=== PATIENT | female | born 1995 | race Caucasian/White ===

== ENCOUNTER 2021-11-11 07:15 | Inpatient (IN) | payer BC ==
[~2021-11-11 07:15] MED LIST: Bupivacaine 0.25% 10 ML SDV ONE
[2021-11-11] MEDS ORDERED: Sodium Chloride 0.9% 10 ML Syringe FLUSH PRN (07:17)
[2021-11-11] MEDS ORDERED: Ondansetron 4 MG/2 ML SDV IVPUSH PRN (07:17)
[2021-11-11] MEDS ORDERED: Nalbuphine HCl 10 MG/ 1ML Amp IVPUSH PRN (07:17)
[2021-11-11] MEDS ORDERED: Oxytocin/Lactated Ringers 10 UNIT/1,000 ML BAG IV SCH ×2 (07:30)
[2021-11-11] MEDS ORDERED: diphenhydrAMINE 50 MG/ML SDV IVPUSH PRN (09:08)
[2021-11-11] MEDS ORDERED: Bupivacaine/fentaNYL/NS 100 ML Bag EPIDUR PRN (09:08)
[2021-11-11] MEDS ORDERED: ePHEDrine 50 MG/ML SDV IVPUSH PRN (09:08)
[2021-11-11] MEDS ORDERED: fentaNYL 100 MCG/2 ML SDV EPIDUR PRN (09:08)
[2021-11-11] MEDS: Lactated Ringers 1,000 ML IV SCH ×5 (09:22→21:28)
[2021-11-11] MEDS: Sodium Chloride 0.9% 10 ML Syringe FLUSH SCH (09:24)
[2021-11-11] MEDS ORDERED: ceFAZolin 1 GM Vial IV STA (21:05)
[2021-11-11] MEDS ORDERED: ceFAZolin 1 GM in Sodium Chloride 0.9% 50 ML IV STA (21:12)
[2021-11-11] MEDS ORDERED: Witch Hazel Medicated Pads 40/Jar TOP PRN (22:48)
[2021-11-11] MEDS ORDERED: Docusate Sodium 100 MG Cap PO PRN (22:48)
[2021-11-11] MEDS ORDERED: Acetaminophen 325 MG Tab PO PRN (22:48)
[2021-11-11] MEDS ORDERED: Benzocaine/Menthol 20%-0.5% Spray 78 GM Cannister TOP PRN (22:48)
[2021-11-11] MEDS: Ibuprofen 600 MG Tab PO PRN (23:05)
[2021-11-12] MEDS: Sodium Chloride 0.9% 10 ML Syringe FLUSH SCH (07:56)
[2021-11-12] MEDS: Ibuprofen 600 MG Tab PO PRN (16:01)
[2021-11-13] MEDS: Ibuprofen 600 MG Tab PO PRN (04:01)
== END 2021-11-13 15:31 | disposition home or self-care (01) | DRG 560 ==
LOC: JD.OB 07:15 → OBSVTOIN 20:43 → JD.OB 20:43
PROVIDERS: ADMIT Obstetrics & Gynecology; ATTEND Obstetrics & Gynecology
PROC: 10E0XZZ Delivery of Products of Conception, External Approach (ICD-10-PCS; principal; 2021-11-11)
PROC: 10907ZC Drainage of Amniotic Fluid, Therapeutic from Products of Conception, Via Natural or Artificial Opening (ICD-10-PCS; 2021-11-11)
PROC: 3E033VJ Introduction of Other Hormone into Peripheral Vein, Percutaneous Approach (ICD-10-PCS; 2021-11-11)
PROC: 3E0P7VZ Introduction of Hormone into Female Reproductive, Via Natural or Artificial Opening (ICD-10-PCS; 2021-11-11)
PROC: 10D17Z9 Manual Extraction of Products of Conception, Retained, Via Natural or Artificial Opening (ICD-10-PCS; 2021-11-11)
PROC: 3E0R3BZ Introduction of Anesthetic Agent into Spinal Canal, Percutaneous Approach (ICD-10-PCS; 2021-11-11)
PROC: 00HU33Z Insertion of Infusion Device into Spinal Canal, Percutaneous Approach (ICD-10-PCS; 2021-11-11)
DX: O48.0 Post-term pregnancy (principal); Z37.0 Single live birth; Z3A.40 40 weeks gestation of pregnancy; Z88.0 Allergy status to penicillin; O70.0 First degree perineal laceration during delivery; O73.0 Retained placenta without hemorrhage
CPT/HCPCS: 01967; 36415; 51702; 59025; 59409; 85027; 86592; 86850; 86900; 86901; A9270-GY; C1726; J0690; J2405; J2590; J3010; J3490; J7120

== ENCOUNTER 2023-06-07 07:00 | Inpatient (IN) | payer BC ==
[2023-06-07] MEDS ORDERED: Ondansetron 4 MG/2 ML SDV IVPUSH PRN (07:15)
[2023-06-07] MEDS ORDERED: Oxytocin/Lactated Ringers 30 UNIT/500 ML BAG IV SCH ×2 (07:15)
[2023-06-07] MEDS ORDERED: Lactated Ringers 1,000 ML IV SCH (07:15)
[2023-06-07] MEDS ORDERED: Sodium Chloride 0.9% 10 ML Syringe FLUSH PRN (07:15)
[2023-06-07] MEDS ORDERED: Nalbuphine HCl 10 MG/ 1ML Amp IVPUSH PRN (07:15)
[2023-06-07] MEDS ORDERED: Acetaminophen 325 MG Tab PO PRN ×2 (07:15→18:46)
[2023-06-07] MEDS ORDERED: Lidocaine 1% 50 ML MDV INJECT PRN (07:15)
[2023-06-07] MEDS ORDERED: ceFAZolin 2 GM in Sodium Chloride 0.9% 50 ML IV ONE (07:30)
[2023-06-07] MEDS ORDERED: Lidocaine 1% 10 ML MDV ONE (08:00)
[2023-06-07 08:15] LABS: BASOPHILS PERCENT AUTO 0.4 % (0.0-1.0); EOSINOPHILS ABSOLUTE AUTO 0.1 K/mm3 (0.0-0.4); EOSINOPHILS PERCENT AUTO 0.9 % (0.0-6.0); HEMATOCRIT 33.7 % (37.0-47.0); HEMOGLOBIN 11.4 gm/dl (12.0-16.0); IMMATURE GRAN ABSOLUTE AUTO 0.08 K/mm3 (0.00-0.05); LYMPHOCYTES ABSOLUTE AUTO 1.6 K/mm3 (1.0-4.8); LYMPHOCYTES PERCENT AUTO 20.4 % (24.0-44.0); MEAN CORPUSCULAR HEMOGLOBIN 30.6 pg (28.0-32.0); MEAN CORPUSCULAR HGB CONC 33.8 g/dl (32.0-36.0); MEAN CORPUSCULAR VOLUME 90.3 fl (83.0-99.0); MEAN PLATELET VOLUME 12.4 fl (9.4-12.3); MONOCYTES ABSOLUTE AUTO 0.6 K/mm3 (0.0-0.8); MONOCYTES PERCENT AUTO 7.2 % (0.0-8.0); NEUTROPHILS ABSOLUTE AUTO 5.5 K/mm3 (1.8-7.7); NEUTROPHILS PERCENT AUTO 70.1 % (41.0-71.0); PLATELET COUNT,PLT 127 K/mm3 (150-400); RED BLOOD CELL COUNT 3.73 M/mm3 (4.10-5.30); WHITE BLOOD CELL COUNT,WBC 7.81 K/mm3 (3.9-11.3)
[2023-06-07] MEDS ORDERED: Sodium Chloride 0.9% 10 ML Syringe FLUSH SCH (09:00)
[2023-06-07] MEDS ORDERED: Phenylephrine 1% 10 MG/ML SDV IVPUSH PRN (10:54)
[2023-06-07] MEDS ORDERED: Bupivacaine/fentaNYL/NS 100 ML Bag EPIDUR PRN (10:54)
[2023-06-07] MEDS ORDERED: diphenhydrAMINE 50 MG/ML SDV IVPUSH PRN (10:54)
[2023-06-07] MEDS ORDERED: ePHEDrine 50 MG/ML SDV IVPUSH PRN (10:54)
[2023-06-07] MEDS ORDERED: fentaNYL 100 MCG/2 ML SDV EPIDUR PRN (10:54)
[2023-06-07] MEDS ORDERED: ceFAZolin 1 GM in Sodium Chloride 0.9% 100 ML IV SCH (15:30)
[2023-06-07] MEDS ORDERED: Promethazine 25 MG Supp RECTAL ONE (16:58)
[2023-06-07] MEDS ORDERED: Benzocaine/Menthol 20%-0.5% Spray 78 GM Cannister TOP PRN (18:46)
[2023-06-07] MEDS ORDERED: Witch Hazel Medicated Pads 40/Jar TOP PRN (18:46)
[2023-06-07] MEDS ORDERED: Docusate Sodium 100 MG Cap PO PRN (18:46)
[2023-06-07] MEDS: Ibuprofen 600 MG Tab PO PRN (19:42)
[2023-06-08] MEDS: Ibuprofen 600 MG Tab PO PRN ×2 (08:25→23:15)
[2023-06-09] MEDS: Ibuprofen 600 MG Tab PO PRN (08:06)
== END 2023-06-09 19:47 | disposition home or self-care (01) | DRG 560 ==
LOC: JD.OB 07:00 → OBSVTOIN 18:23 → JD.OB 18:23
PROVIDERS: ADMIT Obstetrics & Gynecology; ATTEND Obstetrics & Gynecology
PROC: 10E0XZZ Delivery of Products of Conception, External Approach (ICD-10-PCS; principal; 2023-06-07)
PROC: 3E0R3BZ Introduction of Anesthetic Agent into Spinal Canal, Percutaneous Approach (ICD-10-PCS; 2023-06-07)
PROC: 00HU33Z Insertion of Infusion Device into Spinal Canal, Percutaneous Approach (ICD-10-PCS; 2023-06-07)
PROC: 10907ZC Drainage of Amniotic Fluid, Therapeutic from Products of Conception, Via Natural or Artificial Opening (ICD-10-PCS; 2023-06-07)
PROC: 3E033VJ Introduction of Other Hormone into Peripheral Vein, Percutaneous Approach (ICD-10-PCS; 2023-06-07)
DX: O48.0 Post-term pregnancy (principal); Z37.0 Single live birth; O99.824 Streptococcus B carrier state complicating childbirth; O69.81X0 Labor and delivery complicated by cord around neck, without compression, not applicable or unspecified; Z3A.40 40 weeks gestation of pregnancy
CPT/HCPCS: 36415; 51702; 59025; 59409; 85025; 86592; 86850; 86900; 86901; A9270-GY; J0690; J2405; J3010; J3490; J7120; J7999

== ENCOUNTER 2024-08-13 14:49 | Emergency (ER) | payer BC ==
[2024-08-13 15:36] LABS: BASOPHILS PERCENT AUTO 0.5 % (0.0-1.0); EOSINOPHILS ABSOLUTE AUTO 0.1 K/mm3 (0.0-0.4); EOSINOPHILS PERCENT AUTO 1.5 % (0.0-6.0); HEMATOCRIT 39.5 % (37.0-47.0); IMMATURE GRAN ABSOLUTE AUTO 0.01 K/mm3 (0.00-0.05); IMMATURE GRAN PERCENT AUTO 0.1 % (0.0-0.4); LYMPHOCYTES ABSOLUTE AUTO 1.8 K/mm3 (1.0-4.8); LYMPHOCYTES PERCENT AUTO 24.4 % (24.0-44.0); MEAN CORPUSCULAR HEMOGLOBIN 28.8 pg (28.0-32.0); MEAN CORPUSCULAR HGB CONC 32.9 g/dl (32.0-36.0); MEAN CORPUSCULAR VOLUME 87.4 fl (83.0-99.0); MEAN PLATELET VOLUME 10.5 fl (9.4-12.3); MONOCYTES ABSOLUTE AUTO 0.6 K/mm3 (0.0-0.8); MONOCYTES PERCENT AUTO 7.5 % (0.0-8.0); NEUTROPHILS ABSOLUTE AUTO 4.9 K/mm3 (1.8-7.7); RED BLOOD CELL COUNT 4.52 M/mm3 (4.10-5.30); WHITE BLOOD CELL COUNT,WBC 7.37 K/mm3 (3.9-11.3)
[2024-08-13 15:39] LABS: PLATELET COUNT,PLT 234 K/mm3 (150-400)
[2024-08-13 16:03] LABS: ALBUMIN 3.4 g/dl (3.4-5.0); ANION GAP 7.7 (5-15); BILIRUBIN TOTAL 0.3 mg/dL (0.2-1.0); BUN/CREATININE RATIO 17.1 (14-18); CALCIUM 8.5 mg/dL (8.5-10.1); CREATININE 0.7 mg/dL (0.55-1.02); EST CRCL DRUG DOSING (CG) 104.78 mL/min; POTASSIUM,K 3.7 mEq/L (3.5-5.1); PROTEIN TOTAL,TP 6.8 g/dl (6.4-8.2)
[2024-08-13 16:54] LABS: APPEARANCE,URINE CLEAR (Clear); BILIRUBIN,URINE NEGATIVE (Negative); COLOR,URINE LIGHT YELLOW (Yellow); GLUCOSE,URINE NEGATIVE (Negative); KETONES,URINE NEGATIVE (Negative); LEUKOCYTE ESTERASE,URINE NEGATIVE (Negative); NITRITE,URINE NEGATIVE (Negative); OCCULT BLOOD,URINE 3+ (Negative); PH,URINE 6.5 (5.0-8.0); PROTEIN,URINE NEGATIVE (Negative); UROBILINOGEN,URINE 0.2 (0.2-1.0)
[2024-08-13 17:05] LABS: BACTERIA,URINE FEW /hpf (FEW); EPITHELIAL CELLS,URINE 0-5 /hpf (0-5); MUCUS,URINE NOT SEEN /hpf (FEW); RBC,URINE 0-5 /hpf (0-5); WBC,URINE NOT SEEN /hpf (0-5)
== END 2024-08-13 17:45 | disposition home or self-care (01) ==
LOC: JD.ED 14:49
DX: O20.0 Threatened abortion (principal); O34.80 Maternal care for other abnormalities of pelvic organs, unspecified trimester; Z88.1 Allergy status to other antibiotic agents; Z79.899 Other long term (current) drug therapy; Z3A.01 Less than 8 weeks gestation of pregnancy
CPT/HCPCS: 36415; 76817; 76817-26; 80053; 81001; 84702; 85025; 99284

== ENCOUNTER 2024-12-16 12:55 | Emergency (ER) | payer BC ==
[2024-12-16] MEDS ORDERED: Sodium Chloride 0.9% 10 ML Syringe FLUSH PRN (14:22)
[2024-12-16 14:45] LABS: BASOPHILS ABSOLUTE AUTO 0.1 K/mm3 (0.0-0.2); BASOPHILS PERCENT AUTO 0.6 % (0.0-1.0); EOSINOPHILS ABSOLUTE AUTO 0.1 K/mm3 (0.0-0.4); EOSINOPHILS PERCENT AUTO 1.4 % (0.0-6.0); IMMATURE GRAN ABSOLUTE AUTO 0.03 K/mm3 (0.00-0.05); IMMATURE GRAN PERCENT AUTO 0.3 % (0.0-0.4); LYMPHOCYTES ABSOLUTE AUTO 2.1 K/mm3 (1.0-4.8); LYMPHOCYTES PERCENT AUTO 23.6 % (24.0-44.0); MEAN PLATELET VOLUME 10.3 fl (9.4-12.3); MONOCYTES ABSOLUTE AUTO 0.5 K/mm3 (0.0-0.8); MONOCYTES PERCENT AUTO 6.0 % (0.0-8.0); NEUTROPHILS ABSOLUTE AUTO 6.0 K/mm3 (1.8-7.7); NEUTROPHILS PERCENT AUTO 68.1 % (41.0-71.0); NRBC ABSOLUTE 0.00 (0.00-0.02); NRBC PERCENT 0.0 % (0.0-0.2); PLATELET COUNT,PLT 269 K/mm3 (150-400); RED BLOOD CELL COUNT 4.83 M/mm3 (4.10-5.30); WHITE BLOOD CELL COUNT,WBC 8.81 K/mm3 (3.9-11.3)
== END 2024-12-16 17:18 | disposition home or self-care (01) ==
LOC: JD.ED 12:55
DX: O20.0 Threatened abortion (principal); Z88.0 Allergy status to penicillin; Z79.899 Other long term (current) drug therapy; Z3A.01 Less than 8 weeks gestation of pregnancy
CPT/HCPCS: 36415; 76817; 76817-26; 84702; 85025; 86900; 86901; 99284